=== PATIENT | male | born 1975 | race African-American/Black ===

== ENCOUNTER 2020-03-03 11:35 | Emergency (ER) | payer OTHER, SELFPAY ==
[2020-03-03] MEDS ORDERED: Acetaminophen 500 MG TAB ONE (12:02)
[2020-03-03 12:15] LABS: #Basophils 0.1 thou/uL (0.0-0.2); #Lymphocytes 1.2 thou/uL (1.20-3.40); #Neutrophils 10.2 thou/uL (1.40-6.50); %Basophils 0.9 % (0.0-1.0); %Lymphocytes 9.6 % (21.0-51.0); %Monocytes 8.3 % (0.0-10.0); %Neutrophils 81.2 % (42.0-75.0); Hemoglobin 14.3 g/dL (14.0-18.0); Mean Corpuscular HGB CONC 30.9 g/dL (32.0-36.0); Mean Corpuscular Hemoglobin 27.6 pg (27.0-31.0); Mean Corpuscular Volume 89.3 fL (78.0-98.0); Mean Platelet Volume 6.9 fL (7.4-10.4); Platelet Count 270 thou/uL (130-400); RBC Distribution Width 12.5 % (11.5-14.5); Red Blood Cell (RBC) Count 5.19 mill/uL (4.70-6.10); White Blood Cell (WBC) Count 12.6 thou/uL (4.8-10.8)
[2020-03-03 12:29] LABS: ALT (SGPT) 24 U/L (8-55); AST (SGOT) 26 U/L (5-34); Albumin 4.2 g/dL (3.5-5.0); Alkaline Phosphatase 71 U/L (40-110); Anion Gap 15 mmol/L (10-20); BUN (Urea Nitrogen) 14 mg/dL (8.9-20.6); Bilirubin, Total 0.6 mg/dL (0.2-1.2); Calc. Creatinine Clearance 0 mL/min (70-130); Calcium 9.1 mg/dL (7.8-10.44); Carbon Dioxide 21 mmol/L (22-29); Chloride 103 mmol/L (98-107); Estimated GFR-MDRD 85; Globulin 3.2 g/dL (2.4-3.5); Glucose 112 mg/dL (70-105); Lipase 10 U/L (8-78); Potassium 3.6 mmol/L (3.5-5.1); Protein, Total 7.4 g/dL (6.0-8.3); Sodium 135 mmol/L (136-145)
[2020-03-03] MEDS ORDERED: Ondansetron PF 4 MG/2 ML Vial ONE (12:29)
[2020-03-03] MEDS ORDERED: Pantoprazole 40 MG VIAL ONE ×2 (12:29→12:35)
[2020-03-03] MEDS ORDERED: Sodium Chloride 0.9% 1,000 ML ONE (12:29)
[2020-03-03 12:37] LABS: PTT 32.8 sec (22.9-36.1); Prothrombin Time 12.9 sec (12.0-14.7)
[2020-03-03] MEDS ORDERED: Sodium Chloride 0.9% 0 ML ONE (12:38)
[2020-03-03] MEDS ORDERED: Sodium Chloride 0.9% 100 ML ONE (12:39)
--- NOTE | 2020-03-03 12:53 | RAD ---
XR Chest 1 View Portable HISTORY: Nausea, vomiting, hiccups, fever, cough, emesis FINDINGS: The heart size is normal. The lungs are well expanded without focal areas of consolidation, pneumothorax or pleural effusions. IMPRESSION: No radiographic evidence of acute cardiopulmonary process.
[2020-03-03] MEDS ORDERED: Mag-Al Plus 1200 MG/1200 MG/120 MG/30 ML UDCUP ONE (13:09)
[2020-03-03] MEDS ORDERED: Lidocaine Viscous Sol 2% 15 ml UD Cup ONE (13:09)
[2020-03-04 13:05] LABS: SARS-CoV-2 MS2 Positive; SARS-CoV-2 N Gene Positive; SARS-CoV-2 S Gene Positive; SARS-CoV-2 by NAA DETECTED (NotDetected); SARS-CoV-2 orf1ab Positive
== END 2020-03-03 13:41 | disposition home or self-care (01) ==
LOC: NAV ERS 11:35
DX: U07.1 COVID-19 (principal); K29.00 Acute gastritis without bleeding; Z20.828 Contact with and (suspected) exposure to other viral communicable diseases
CPT/HCPCS: 71045; 80053; 82274; 83690; 84484; 85025; 85610; 85730; 87635; 93005; 96361; 96365; 96375; C9113; J2405; J3490; J7050; U0003

== ENCOUNTER 2020-03-14 11:22 | Emergency (ER) | payer OTHER, SELFPAY ==
[2020-03-15 13:56] LABS: SARS-CoV-2 MS2 Positive; SARS-CoV-2 N Gene Positive; SARS-CoV-2 S Gene Positive; SARS-CoV-2 by NAA DETECTED (NotDetected); SARS-CoV-2 orf1ab Positive
== END 2020-03-14 12:20 | disposition home or self-care (01) ==
LOC: NAV ERS 11:22
DX: U07.1 COVID-19 (principal)
CPT/HCPCS: 87635; 99283; U0003